=== PATIENT | female | born 1945 | race Caucasian/White ===

== ENCOUNTER 2022-04-29 12:57 | Inpatient (IN) ==
[2022-04-29] MEDS ORDERED: Melatonin 3 MG TABLET PO PRN (15:42)
[2022-04-29] MEDS ORDERED: Ondansetron ODT 4 MG TAB.RAPDIS SL PRN (15:42)
[2022-04-29] MEDS ORDERED: Acetaminophen 325 MG TABLET PO PRN (15:42)
[2022-04-29] MEDS ORDERED: Naloxone 0.4 MG/ML INJ IVP PRN (15:42)
[2022-04-29] MEDS ORDERED: D5% in Water 1,000 ML IVC PRN (15:46)
[2022-04-29] MEDS ORDERED: *HR* Dextrose 50 % in Water (Syg) 50 ML SYRINGE IVP PRN (15:46)
[2022-04-29] MEDS ORDERED: Dextrose Gel 15 GM/37.5 ML TUBE PO PRN ×2 (15:46)
[2022-04-29] MEDS ORDERED: *HR* Heparin 5,000 UNIT/ML VIAL IVP ONE (15:53)
[2022-04-29] MEDS ORDERED: *HR* Heparin 5,000 UNIT/ML VIAL IVP PRN ×2 (15:53)
[2022-04-29 16:32] LABS: Heparin anti-factor XA UFH 0.26 IU/mL (0.30-0.70)
[2022-04-29] MEDS: Heparin 25,000UNIT/250ML 1/2NS 25,000 UNIT/250 ML IV.SOLN IVC SCH (16:32)
[2022-04-29 16:33] LABS: Prothrombin Time 11.3 Seconds (9.4-12.1)
[2022-04-29] MEDS ORDERED: Insulin LISPRO 300 UNITS/3 ML VIAL SUBQ SCH (17:30)
[2022-04-29] MEDS: Latanoprost 2.5 ML BOTTLE BOTH EYES SCH (22:29)
[2022-04-29] MEDS: Insulin DETEMIR 100 UNIT/ML X5UNITS SUBQ SCH (22:29)
[2022-04-30 01:21] LABS: Hematocrit 35.8 % (35.3-44.9); Hemoglobin 12.2 g/dL (11.5-15.4); Mean Corpuscular HGB Conc 34.1 g/dL (31.6-35.5); Mean Corpuscular Hemoglobin 32.5 pg (28.0-33.3); Mean Corpuscular Volume 95.5 fL (83.0-100.0); Mean Platelet Volume 9.4 fL (9.4-12.4); Platelet Count 289 K/mcL (140-400); Red Blood Count 3.75 M/mcL (3.82-4.97); Red Cell Distribution Width 12.4 % (11.5-14.5)
[2022-04-30 01:45] LABS: Albumin 3.5 g/dL (3.5-5.7); Albumin/Globulin Ratio 1.8 (1.1-2.2); Bilirubin,Total 0.6 mg/dL (0.3-1.0); Calcium 8.8 mg/dL (8.6-10.3); Chol/HDL Ratio 2.7 (0-4.9); Globulin 1.9 g/dL (2.4-3.5); Magnesium 1.5 mg/dL (1.6-2.6); Phosphorous 3.1 mg/dL (2.7-4.5); Potassium 3.1 mEq/L (3.5-5.1); Total Protein 5.4 g/dL (6.4-8.9); Troponin I 0.22 ng/mL (< 0.04)
[2022-04-30 02:40] LABS: Estimated Average Glucose 126 mg/dl
[2022-04-30] MEDS: Aspirin 81 MG TAB.CHEW PO SCH (08:09)
[2022-04-30] MEDS ORDERED: *HR* Heparin 10,000 UNIT/10 ML VIAL ONE (13:06)
[2022-04-30] MEDS ORDERED: 0.9 % Sodium Chloride 2,000 ML ONE (13:06)
[2022-04-30] MEDS ORDERED: Iopamidol - 370 200 ML INFUS..BTL ONE (13:06)
[2022-04-30] MEDS ORDERED: Heparin 1,000 UNITS/500 mL 500 ML ONE ×2 (13:06→14:24)
[2022-04-30] MEDS ORDERED: Nitroglycerin 1,000 MCG/5 ML VIAL IV ONE (13:07)
[2022-04-30] MEDS ORDERED: *HR* Midazolam HCl 2 MG/2 ML VIAL ONE (13:14)
[2022-04-30] MEDS ORDERED: *HR* FentaNYL (PF) 100 MCG/2 ML VIAL ONE (13:14)
[2022-04-30] MEDS ORDERED: *HR* Ticagrelor 90 MG TABLET ONE (14:42)
[2022-04-30 14:52] LABS: Thyroid Stimulating Hormone 5.324 mcIU/mL (0.340-5.600)
[2022-04-30] MEDS: 0.9 % Sodium Chloride 1,000 ML IVC SCH (15:25)
[2022-04-30] MEDS: Heparin 25,000UNIT/250ML 1/2NS 25,000 UNIT/250 ML IV.SOLN IVC SCH (18:37)
[2022-04-30] MEDS ORDERED: *HR* Heparin 5,000 UNIT/ML VIAL IVP PRN ×2 (20:00)
[2022-04-30] MEDS ORDERED: Heparin 25,000UNIT/250ML 1/2NS 25,000 UNIT/250 ML IV.SOLN IVC SCH (20:00)
[2022-04-30] MEDS: Latanoprost 2.5 ML BOTTLE BOTH EYES SCH (21:46)
[2022-04-30] MEDS: Insulin DETEMIR 100 UNIT/ML X5UNITS SUBQ SCH (21:49)
[2022-05-01] MEDS: 0.9 % Sodium Chloride 1,000 ML IVC SCH (04:20)
[2022-05-01 04:35] LABS: Hematocrit 36.1 % (35.3-44.9); Hemoglobin 12.3 g/dL (11.5-15.4)
[2022-05-01 04:52] LABS: BUN/Creatinine Ratio 28 (6-26); Blood Urea Nitrogen 13 mg/dL (8-23)
[2022-05-01 07:27] VITALS: BP 159/87; PULSE 95; TEMP 98.8; O2SAT 100
[2022-05-01] MEDS: Aspirin 81 MG TAB.CHEW PO SCH (08:54)
[2022-05-01] MEDS ORDERED: Insulin DETEMIR 100 UNIT/ML X5UNITS SUBQ SCH (09:00)
== END 2022-05-01 12:01 | disposition home or self-care (01) | DRG 247 ==
LOC: 2ANU → SUATTDRO 15:18
PROVIDERS: ADMIT Internal Medicine; ATTEND Internal Medicine